=== PATIENT | male | born 1985 | race Asian ===

== ENCOUNTER 2020-03-04 04:26 | Inpatient (IN) | payer MEDICAID, OTHER ==
[~2020-03-04] VITALS: Ht 170.2 cm; Wt 54.5 kg
[2020-03-04] VITALS (16 sets, daily range): BP systolic 105–161; BP diastolic 60–96
--- NOTE | 2020-03-04 04:39 | NUR ---
PT URINATED PRIOR TO ARRIVAL- WILL TRY AND COLLECT URINE SAMPLE IN 15 MIN
[2020-03-04] MEDS ORDERED: metoclopramide 5 mg/ml inj IV ONE (05:00)
[2020-03-04] MEDS ORDERED: diphenhydrAMINE 50 mg/ml inj IV ONE (05:00)
[2020-03-04] MEDS ORDERED: ketorolac trometh. 30mg/ml inj. IV ONE (05:00)
[2020-03-04 05:07] LABS: BASOPHILS # (AUTO) 0.1 X10'3 (0-0.2); BASOPHILS % (AUTO) 0.2 % (0-1); EOSINOPHILS % (AUTO) 0.1 % (0-6); LYMPHOCYTES # (AUTO) 0.9 X10'3 (1.1-4.8); LYMPHOCYTES % (AUTO) 3.6 % (21-51); MEAN CORPUSCULAR HEMOGLOBIN 29.3 PG (27.0-31.0); MEAN CORPUSCULAR HGB CONC 33.4 g/dL (33.0-36.5); MEAN CORPUSCULAR VOLUME 87.9 FL (78-98); MEAN PLATELET VOLUME 7.9 FL (7.4-10.4); MONOCYTES # (AUTO) 1.7 X10'3 (0-0.9); MONOCYTES % (AUTO) 6.6 % (2-12); NEUTROPHILS % (AUTO) 89.5 % (42-75); PLATELET COUNT 424 X10'3 (140-440); RED BLOOD COUNT 6.15 X10'6 (4.70-6.10); RED CELL DISTRIBUTION WIDTH 14.5 % (11.5-14.5)
[2020-03-04 05:19] LABS: WHITE BLOOD COUNT 25.7 X10'3 (4.5-11.0)
--- NOTE | 2020-03-04 05:20 | NUR ---
OHLFS UPDATED ON ELEVATED WBC AND HGB
[2020-03-04 05:23] LABS: ALANINE AMINOTRANSFERASE 29 U/L (12-78); ALBUMIN 5.1 G/DL (3.4-5.0); ALKALINE PHOSPHATASE 105 IU/L (46-116); ANION GAP 12 (8-16); ASPARTATE AMINO TRANSFERASE 18 U/L (10-37); BILIRUBIN,TOTAL 1.5 MG/DL (0.1-1.0); BLOOD UREA NITROGEN 23 MG/DL (7-18); BUN/CREATININE RATIO 18.7 (5.4-32.0); CALCIUM 9.8 MG/DL (8.5-10.1); CHLORIDE 95 MMOL/L (99-107); CREATININE 1.23 MG/DL (0.60-1.10); GLUCOSE 131 MG/DL (70-104); LIPASE 53 U/L (73-393); POTASSIUM 4.1 MMOL/L (3.5-5.1); SODIUM 135 MMOL/L (135-145); TOTAL CARBON DIOXIDE 27.8 MMOL/L (24-32); TOTAL PROTEIN 10.1 G/DL (6.4-8.2); eGFR 67 ML/MIN
[2020-03-04] MEDS ORDERED: piperacillin/tazo 3.375gm/50ml 50 ML IV ONE (05:25)
[2020-03-04] MEDS ORDERED: normal saline 1000ML IV soln IV ONE (05:25)
[2020-03-04 05:26] LABS: COLOR,URINE YELLOW (Yellow); GLUCOSE, URINE NEGATIVE (Neg); KETONES,URINE NEGATIVE (Neg); LEUKOCYTE ESTERASE ,URINE NEGATIVE (Neg); NITRITES, URINE NEGATIVE (Neg); OCCULT BLOOD,URINE MODERATE (Neg); PH,URINE 5.5 (4.8-8.0); PROTEIN,URINE 100 mg/dl (Neg)
[2020-03-04 05:32] LABS: CLARITY,URINE SLIGHTLY CLOUDY (Clear); UA COLLECTION TYPE URINAL
[2020-03-04 05:33] LABS: BACTERIA,URINE FEW /HPF (Neg); MUCUS STRANDS MODERATE /LPF (Neg); RBC,URINE 0-2 /HPF (0-2); SQUAMOUS EPITHELIAL CELL,UR FEW /LPF (FEW)
[2020-03-04 05:41] LABS: PLATELET ESTIMATE NORMAL; TOTAL CELLS COUNTED 100
[2020-03-04] MEDS ORDERED: morphine 4 MG/ML inj SYRINge IV ONE (06:00)
[2020-03-04] MEDS ORDERED: ringers solution, lacted 1,000 ML IV SCH (07:32)
[2020-03-04] MEDS ORDERED: ringers solution, lacted 1,000 ML IV ONE (07:32)
[2020-03-04] MEDS ORDERED: LIDOcaine 1% 30ml preserv. free vial ONE (07:33)
[2020-03-04] MEDS ORDERED: BUPIVAcaine/PF 2.5 mg/ml (0.25%) 30ml vial ONE (07:33)
[2020-03-04] MEDS ORDERED: morphine 2 MG/ML inj. syringe IV PRN (07:35)
[2020-03-04] MEDS ORDERED: morphine 4 MG/ML inj SYRINge IV PRN (07:35)
[2020-03-04] MEDS ORDERED: ondansetron/PF 4mg/2ml inj IV PRN ×2 (07:35→07:45)
[2020-03-04] MEDS ORDERED: fentaNYL/PF 50MCG/1 ML 2ML syringe IV PRN ×2 (07:35)
[2020-03-04] MEDS ORDERED: labetalol 20mg/4ml (5mg/ml) syringe IV PRN (07:35)
[2020-03-04] MEDS ORDERED: hydrALAZINE 20mg/ml inj. IV PRN (07:35)
[2020-03-04] MEDS ORDERED: famotidine/PF 10 mg/ml inj IV ONE (07:36)
[2020-03-04] MEDS ORDERED: HYDROmorphone inj. 0.5 MG/0.5 ML DISP.SYRIN IV PRN (07:45)
[2020-03-04] MEDS ORDERED: magnesium hydroxide 30ml (MOM) UD suspension PO PRN (07:45)
[2020-03-04] MEDS ORDERED: mag hydrox/Alum hydrox/simeth 30ml oral suspension PO PRN (07:45)
[2020-03-04] MEDS ORDERED: acetaminophen 325mg tablet PO PRN (07:45)
--- NOTE | 2020-03-04 10:11 | NUR ---
Breaking primary RN, pt is in bed, Sleeping, VSS, regular breathing observed
[2020-03-04] MEDS ORDERED: midazolam 2 mg/2 ml injection ONE (10:28)
[2020-03-04] MEDS ORDERED: meperidine/PF 50mg/ml syringe ONE (10:29)
[2020-03-04] MEDS ORDERED: ondansetron/PF 4mg/2ml inj ONE (10:31)
[2020-03-04] MEDS ORDERED: LIDOcaine 2% (20mg/ml) 5ml vial ONE (10:31)
[2020-03-04] MEDS ORDERED: rocuronium 10mg/ml inj IV ONE (10:31)
[2020-03-04] MEDS ORDERED: propofol inj 20 ML IV ONE (10:31)
--- NOTE | 2020-03-04 10:35 | NUR ---
PATIENT REMAINS NPO. TO OR PER VALERIE, WITH TRANSPORTER, IN GOOD CONDITION. ALL PATIENT BELONGINGS BAGGED AND SENT WITH PATIENT. BELONGINGS INCLUDE: WHITE T-SHIRT, BLACK PANTS, STRIPED BLANKET, TABLET COMPUTER IN CANVAS BAG, SANDALS.
[2020-03-04] MEDS ORDERED: sevoflurane 250ml liquid IH ONE (11:00)
[2020-03-04] MEDS ORDERED: dexamethasone sod phosphate 10mg/ml inj ONE (11:00)
[2020-03-04] MEDS ORDERED: neostigmine methylsulfate 1 MG/ML 10ml vial ONE (11:00)
[2020-03-04] MEDS ORDERED: ceFOXitin 1000 MG inj ONE (11:13)
[2020-03-04] MEDS ORDERED: labetalol 20mg/4ml (5mg/ml) syringe IV ONE (11:37)
[2020-03-04] MEDS ORDERED: glycopyrrolate 0.2mg/ml inj ONE (11:46)
--- NOTE | 2020-03-04 12:13 | NUR ---
Received from OR via , accompanied by Anesthesiologist DR STERN and report given by Anesthesiolgist. PT IS SLEEPING AND NOT RESPONDING TO VOICE, SKIN WAMR AND PINK, ORAL AIRWAY IN PLACE WITH 10L MASK, SCD'S, ABD 3 BA'S CD, NO SIGNS OF PAIN, VSS.
--- NOTE | 2020-03-04 12:15 | NUR ---
REMOVED ORAL AIRWAY. SATS 100% WITH 10L MASK.
--- NOTE | 2020-03-04 12:47 | NUR ---
Report called to receiving nurse. Transferred via BED Belongings . Special Issues communicated to receiving nurse FABIENNE EVANS. PT IS AWAKE, ALERT, BERNADETTE FLUIDS, VSS, NO C/O PAIN, IV PATENT, MEETS DISCHARGE CRITERIA. BROUGHT TO ROOM 3023A PLACED ON OXYGEN, GIVEN CALL LIGHT AND PAPERS GIVEN TO YOHAN. SHE STATED SHE WOULD LET FABIENNE KNOW HER PATIENT HAS ARRIVED.
--- NOTE | 2020-03-04 12:50 | NUR ---
Patient in room PCU 3023. I have received report from Kelly EVANS and had the opportunity to ask questions and assume patient care.
[2020-03-04] MEDS: ketorolac tromethamine 15mg/ml inj. IV SCH ×2 (14:27→20:00)
[2020-03-04] MEDS: normal saline 1000ml 1,000 ML IV SCH ×2 (14:27→18:00)
[2020-03-04] MEDS: acetaminophen 325mg tablet PO SCH ×2 (14:28→20:00)
[2020-03-04] MEDS: piperacillin/tazo 4.5gm/100ml 100 ML IV SCH (16:08)
--- NOTE | 2020-03-04 18:00 | NUR ---
Problems reprioritized. Patient report given, questions answered & plan of care reviewed with Debo EVANS.
--- NOTE | 2020-03-04 18:31 | NUR ---
Patient in room PCU 3023. I have received report from Gretchen EVANS and had the opportunity to ask questions and assume patient care.
[2020-03-04] MEDS: lactobacillus rhamnosus 10,000 MMU CELLS/CAPSULE PO SCH (20:42)
--- NOTE | 2020-03-04 22:51 | NUR ---
Reassess not documented from prev shift. pt states no pain at this time
[2020-03-05] MEDS: piperacillin/tazo 4.5gm/100ml 100 ML IV SCH ×2 (00:08→07:09)
[2020-03-05 02:00] VITALS: BP 112/60
[2020-03-05] MEDS: ketorolac tromethamine 15mg/ml inj. IV SCH ×2 (02:00→07:10)
[2020-03-05] MEDS: acetaminophen 325mg tablet PO SCH ×2 (02:00→07:09)
[2020-03-05] MEDS: normal saline 1000ml 1,000 ML IV SCH ×2 (03:45→13:45)
[2020-03-05 06:07] LABS: BASOPHILS % (AUTO) 0.4 % (0-1); EOSINOPHILS % (AUTO) 0.3 % (0-6); HEMATOCRIT 37.8 % (42.0-52.0); HEMOGLOBIN 12.4 g/dl (14.0-17.9); LYMPHOCYTES # (AUTO) 1.4 X10'3 (1.1-4.8); LYMPHOCYTES % (AUTO) 13.3 % (21-51); MEAN CORPUSCULAR HEMOGLOBIN 29.1 PG (27.0-31.0); MEAN CORPUSCULAR HGB CONC 32.7 g/dL (33.0-36.5); MEAN CORPUSCULAR VOLUME 88.9 FL (78-98); MEAN PLATELET VOLUME 8.2 FL (7.4-10.4); MONOCYTES # (AUTO) 0.9 X10'3 (0-0.9); MONOCYTES % (AUTO) 8.5 % (2-12); NEUTROPHILS # (AUTO) 8.2 X10'3 (1.8-7.7); NEUTROPHILS % (AUTO) 77.5 % (42-75); PLATELET COUNT 304 X10'3 (140-440); RED BLOOD COUNT 4.25 X10'6 (4.70-6.10); RED CELL DISTRIBUTION WIDTH 14.4 % (11.5-14.5); WHITE BLOOD COUNT 10.6 X10'3 (4.5-11.0)
[2020-03-05 06:19] LABS: ALBUMIN 3.1 G/DL (3.4-5.0); ANION GAP 5 (8-16); BLOOD UREA NITROGEN 12 MG/DL (7-18); BUN/CREATININE RATIO 13.3 (5.4-32.0); CALCIUM 8.1 MG/DL (8.5-10.1); CHLORIDE 104 MMOL/L (99-107); GLUCOSE 96 MG/DL (70-104); POTASSIUM 3.8 MMOL/L (3.5-5.1); SODIUM 137 MMOL/L (135-145); TOTAL CARBON DIOXIDE 27.7 MMOL/L (24-32); eGFR > 90 ML/MIN
--- NOTE | 2020-03-05 06:26 | NUR ---
Problems reprioritized. Patient report given, questions answered & plan of care reviewed with Tasia EVANS.
[2020-03-05 07:00] VITALS: BP 108/66
[2020-03-05] MEDS ORDERED: NO HOME MEDS (07:03)
[2020-03-05] MEDS: lactobacillus rhamnosus 10,000 MMU CELLS/CAPSULE PO SCH (07:09)
--- NOTE | 2020-03-05 10:15 | NUR ---
Patient in room FRANK 345. I have received report from Dianelys RN PCU and had the opportunity to ask questions and assume patient care once pt arrives to Surgical from PCU.
--- NOTE | 2020-03-05 10:16 | NUR ---
Problems reprioritized. Patient report given, questions answered & plan of care reviewed with Yenni EVANS.
--- NOTE | 2020-03-05 10:30 | NUR ---
Pt arrived from PCU via hospital bed. To room 345A. Pt AOx4, no complaints, no s/sx distress. Abdominal surgical site bandaids CDI. Pt oriented to room/floor. VSS. Will continue to monitor.
[2020-03-05] MEDS ORDERED: HYDR-4353 PO (12:34)
[2020-03-05 12:49] VITALS: BP 104/62
--- NOTE | 2020-03-05 14:00 | NUR ---
Pt refused Toradol and Tylenol at this time, pt states no pain and doesn't need at this time. D/C'g home.
--- NOTE | 2020-03-05 15:00 | NUR ---
Pt stable and appropriate for discharge. PIV d/c'd, cannula intact. Reviewed with pt all d/c instructions and meds. Prescription escripted to Dara Otoole. Pt to call and schedule followup with Dr Eng in one week. Pt to call surgeon with any questions, concerns or s/sx of complications or return to the nearest ED. Escorted to front lobby by staff member via w/c with all personal. DC home in private vehicle driven by family member.
== END 2020-03-05 15:00 | disposition home or self-care (01) | DRG 710 ==
LOC: ER 04:26 → ED HOLD 07:45 → PACU 11:35 → PCU 3S 13:12 → SUR 3N 03-05 10:36
PROVIDERS: ADMIT Family Medicine; ATTEND Family Medicine
PROC: 0DTJ4ZZ Resection of Appendix, Percutaneous Endoscopic Approach (ICD-10-PCS; principal; 2020-03-04 11:00)
DX: A41.9 Sepsis, unspecified organism (principal); K35.80 Unspecified acute appendicitis; F17.210 Nicotine dependence, cigarettes, uncomplicated; K38.1 Appendicular concretions; N17.0 Acute kidney failure with tubular necrosis; F12.90 Cannabis use, unspecified, uncomplicated; Z71.6 Tobacco abuse counseling
CPT/HCPCS: 36415; 74176; 80048; 80053; 81001; 83605; 83690; 84145; 85025; 87040; 87081; 87088; 96365; 96366; 96375; 99285; A4215; A4314; A4618; A7000; G0378; J0694; J1100; J1200; J1885; J2001; J2175; J2250; J2270; J2405; J2543; J2704; J2710; J2765; J3490; J7030; J7120